=== PATIENT | female | born 1950 | race Caucasian/White ===

== ENCOUNTER → 2016-06-15 | Outpatient (CLI) | payer MEDICARE, OTHER ==
--- NOTE | 2016-06-16 09:39 | MAM ---
History: Well woman exam. Date of exam: 06/15/2016 Services provided: Bilateral full field digital screening mammography. CAD, the images were reviewed with R2 computer aided detection. FINDINGS: Glandular tissue is scattered glandular contour. No prior study is currently available for comparison. Mammographic asymmetry retroareolar 10:00 right breast. No clustered microcalcification or architectural distortion. No mammographic abnormality on the left. IMPRESSION: Incomplete study Recommendation: True lateral view right breast with spot compression films in the true lateral and craniocaudal projections. Directed ultrasound if indicated clinically. BIRAD CATEGORY: 0 INCOMPLETE Electronically signed by: Soniya Mackenzie MD 06/16/2016 9:39 AM CDT
== END ==
LOC: MAMMO 15:51
PROVIDERS: ATTEND General Practice
DX: Z12.31 Encounter for screening mammogram for malignant neoplasm of breast (principal)

== ENCOUNTER → 2016-06-29 | Outpatient (CLI) | payer MEDICARE ==
--- NOTE | 2016-06-29 15:02 | MAM ---
EXAM DESCRIPTION: Diagnostic Mammo, right CLINICAL HISTORY: 66 yearsFemaleABN MAMMO COMPARISON: Digital screening bilateral examination 06/15/2016. TECHNIQUE: Full field digital LM image right breast. Digital spot compression visualization of the retroareolar right breast in the CC and MLO projections. CAD was utilized. FINDINGS: On all images including compression images, there is suggestion of a well-circumscribed tissue in the retroareolar right breast. No focal masses or focal asymmetry. No suspicious microcalcifications. ULTRASOUND: Retroareolar right breast tissue shows heterogeneous fibrofatty tissue and ductal tissue. No discrete focal mass or cyst. No edema in the tissues. IMPRESSION: BI-RADS CATEGORY: 2 BENIGN Recommendations: Return to routine bilateral digital screening examination in one year interval from June 2016. The results and follow-up were discussed in person with the patient. Communication explaining the results and followup will be mailed to the patient and referring care provider. Electronically signed by: Amador Langston MD 06/29/2016 3:01 PM CDT
--- NOTE | 2016-06-29 15:09 | US ---
EXAM DESCRIPTION: Breast, right CLINICAL HISTORY: 66 yearsFemaleABNORMAL MAMMO COMPARISON: Diagnostic digital mammogram of the right breast on this visit. Digital screening bilateral examination 06/15/2016. TECHNIQUE: Transcutaneous scanning of the right periareolar breast utilizing two-dimensional and Doppler modes. Scanning performed by the braid cutter . FINDINGS: Retroareolar right breast tissue shows heterogeneous fibrofatty tissue and ductal tissue. No discrete focal mass or cyst. No edema in the tissues IMPRESSION: BI-RADS CATEGORY: 2 BENIGN. Please refer to right breast diagnostic digital mammogram examination today and report. The findings and the follow-up plan were reviewed in person with the patient after the examination. Electronically signed by: Amador Langston MD 06/29/2016 3:09 PM CDT
== END | disposition home or self-care (01) ==
LOC: MAMMO 13:33
PROVIDERS: ATTEND General Practice
DX: R92.8 Other abnormal and inconclusive findings on diagnostic imaging of breast (principal)

== ENCOUNTER → 2018-01-25 | Outpatient (CLI) | payer MEDICARE, OTHER ==
--- NOTE | 2018-01-27 09:39 | MAM ---
EXAM DESCRIPTION: 3D Screening BILATERAL : Digital Mammography. CLINICAL HISTORY: 67 years Female SCREEN . No complaints. No personal or family history of breast cancer. Childbirth. Postmenopausal. No HRT. Lifetime risk of developing breast cancer (Tyrer-Cuzick model)(%): 5.4. COMPARISON: 2-D digital screening bilateral mammography 06/15/2016.. TECHNIQUE: Bilateral CC and MLO projection full-field images, digital tomosynthesis mammographic technique. Bilateral digital 2-D full-field MLO images. CAD not available for tomosynthesis or 2-D images. FINDINGS: The breast parenchymal density pattern is: Scattered areas of fibroglandular density. No skin thickening or nipple retraction. Bilateral axillary lymph nodes. Bilateral solitary microcalcifications. Focal asymmetry lateral to the right nipple is stable. No new focal, stellate mass or density, focal asymmetry , and no suspicious microcalcifications bilaterally. Stable mammograms compared to prior study. Taking into account, differences in mammographic technique. IMPRESSION: Benign exam. BIRAD CATEGORY: 2 BENIGN FINDINGS. RECOMMENDATIONS: FOLLOW UP: Routine digital bilateral mammographic screening, one year interval from January 2018. Written communication explaining the IMPRESSION and follow-up, will be mailed to the patient and referring health care provider. According to the [employer], yearly mammograms are recommended starting at age 40 and continuing as long as a woman is in good health. Any breast change noted on a breast self-exam should be reported promptly to the patient's healthcare provider. Breast MRI is recommended for women with an approximately 20-25% or greater lifetime risk of breast cancer, including women with a strong family history of breast or ovarian cancer and women who have been treated for Hodgkin's disease. A negative mammographic report should not delay tissue diagnosis in patients with significant clinical history or physical findings. Extremely dense breast tissue limits the sensitivity of digital mammography. 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
== END ==
LOC: MAMMO 09:47
PROVIDERS: ATTEND General Practice
DX: Z12.31 Encounter for screening mammogram for malignant neoplasm of breast (principal)

== ENCOUNTER → 2018-02-09 | Outpatient (CLI) | payer MEDICARE, OTHER ==
--- NOTE | 2018-02-09 18:30 | US ---
EXAM DESCRIPTION: Abdomen,Complete: Ultrasound. CLINICAL HISTORY: R10.13 COMPARISON: None Available. TECHNIQUE: Transabdominal scannin-dimensional and Doppler modes. FINDINGS: Gallbladder: Normal size and echogenicity. Wall thickness 1 mm. No surrounding fluid. Nontender with transducer pressure. Common bile duct: 4.5 mm normal caliber. Liver: Long axis right lobe is 14.1 cm. Normal echogenicity. Normal caliber of the portal vein and hepatopedal flow. Intrahepatic ducts are negative. Smooth capsule with no ascites. Pancreas: Normal size and echogenicity. Duct not seen.. Abdominal aorta: Normal caliber from the proximal segment to the distal bifurcation. IVC: visualized; normal caliber. Spleen normal echogenicity; long axis measurement is 9.9 cm. Right kidney: 10.2 cm long axis. Normal cortical thickness and echogenicity. No hydronephrosis or perinephric fluid. Left kidney: 11.2 cm long axis. Normal cortical thickness and echogenicity. No hydronephrosis or perinephric fluid. IMPRESSION: Ultrasound abdomen is unremarkable. No enlarged organs. No free fluid. Normal ducts and vascularity. Electronically signed by: Amador Lagnston MD 02/09/2018 6:29 PM BREAKER BOSS
== END ==
LOC: US 10:37
PROVIDERS: ATTEND General Practice
DX: R10.13 Epigastric pain (principal); R10.11 Right upper quadrant pain

== ENCOUNTER → 2018-02-11 | Outpatient (CLI) | payer MEDICARE, OTHER ==
--- NOTE | 2018-02-11 13:48 | CT ---
EXAM DESCRIPTION: Chest w/Contrast : Computed Tomography. CLINICAL HISTORY: 67 years Female CHEST PAIN, EPIGASTRIC PAIN COMPARISON: CT scan of the abdomen and pelvis on the same visit. TECHNIQUE: Spiral-axial scans at 5.0 mm intervals through the lungs and thorax with IV contrast. 2.5 x 5.0 mm lung algorithm axial reconstructions. 2.0 Mm reconstructions. No adverse reactions. Total Exam DLP: Not recorded. This exam was performed according to our departmental dose-optimization program which includes automated exposure control, adjustment of the mA and/or kV according to patient size and/or use of iterative reconstruction technique; to reduce radiation dose to as low as reasonably achievable (ALARA). Nodule measurements under 10 mm are given as mean value of 3 axes diameters. FINDINGS: Lungs and large airways: No abnormal nodules or masses. Minimal dependent atelectasis. No acute infiltrates. Pleural spaces: Slightly prominent posteriorly in the mid thorax bilaterally. No effusion or pneumothorax. Mediastinum and Judie: Small right hilar node not enlarged. No other nodes or soft tissue masses. Great vessels and Heart: Coronary artery calcifications. Small calcifications in the brachiocephalic vessels proximally and the proximal aortic arch, distal thoracic aorta. Normal contour. Soft tissues of neck base, axillae, and chest wall: Negative. Thyroid gland partially visualized. Upper abdomen: Please see abdominal and pelvic CT report. Osseous structures: Diffuse thoracic mild spondylosis. Arthrosis right sternoclavicular joint. IMPRESSION: CT scan of the lungs chest and thorax is unremarkable except for coronary artery calcifications and atherosclerotic calcifications in the aorta. Minimal dilated pleural spaces but no effusion or pneumothorax. 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
--- NOTE | 2018-02-11 15:30 | CT ---
EXAM DESCRIPTION: Abdomen/Pelvis w/Contrast: Computed Tomography. CLINICAL HISTORY: 67 years Female CHEST PAIN COMPARISON: Chest CT scan on this visit. Prior abdominal pelvic CT scan without contrast 03/20/2011. TECHNIQUE: Spiral-axial scans at 5 x 5 mm intervals through the abdomen and pelvis, after nonionic IV contrast and water-soluble oral contrast. Coronal and sagittal 2.0 mm reconstructions. No delayed scans. No adverse reactions. Total Exam DLP: not recorded. This exam was performed according to our departmental dose-optimization program which includes automated exposure control, adjustment of the mA and/or kV according to patient size and/or use of iterative reconstruction technique; to reduce radiation dose to as low as reasonably achievable (ALARA). FINDINGS: Lung bases and pleura: Please see chest CT scan report. Liver, Stomach, Spleen, Adrenal Glands: Unremarkable. Pancreas, Gallbladder, Ducts: Gallbladder visualized. Duct and pancreas are negative. Kidneys and Ureters: 1.6 cm cyst left kidney. No hydronephrosis or perinephric edema. Bilateral ureters unremarkable. Mesentery: No free air or free fluid. No fatty stranding or fascial thickening. Aorta: Moderate atherosclerotic calcification. No para-aortic mass. No calcification of the major branch vessels. Small Bowel: Contains oral contrast. Normal caliber. Terminal Ileum/Cecum: Negative. Appendix normal caliber and contains oral contrast proximal segment. Normal density of the surrounding fat. Colon: Oral contrast ascending colon. Minimal redundancy of the transverse colon. Moderate redundancy with sigmoid extending into the left upper quadrant. Focal gas distention in the superior sigmoid. No complications. Pelvic Organs: Unremarkable. No free fluid. Spine and Bony Pelvis: Spondylosis L5-S1 grade 1 anterolisthesis L4-5 with significant foraminal narrowing. Minimal spondylosis lower thoracic disc spaces. Subchondral cyst posterior femoral head abutting the hip joint. Abdominal Wall/Back Soft Tissues: Negative. IMPRESSION: 1. Cyst in the left kidney otherwise negative. Otherwise kidneys are negative. No ascites or organomegaly in the abdomen or pelvis.. No free fluid or free air 2. Constipation: With redundant sigmoid but no complications. 3. Spondylosis L5-S1 and grade 1 anterolisthesis L4-5 with significant foraminal narrowing. 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
== END ==
LOC: CT 09:02
PROVIDERS: ATTEND General Practice
DX: R07.9 Chest pain, unspecified (principal); R06.02 Shortness of breath; K59.00 Constipation, unspecified; R10.13 Epigastric pain; I70.0 Atherosclerosis of aorta; I25.10 Atherosclerotic heart disease of native coronary artery without angina pectoris; N28.1 Cyst of kidney, acquired; M47.897 Other spondylosis, lumbosacral region